=== PATIENT | female | born 1995 | race Caucasian/White ===

== ENCOUNTER 2017-09-30 10:04 | Emergency (ER) | payer BC ==
[2017-09-30] MEDS ORDERED: NS 0.9% 1000 ML* 2,000 ML IV ONE (10:32)
[2017-09-30 11:08] LABS: ABS Basophils 0 10^3/ul (0-0.2); ABS Eosinophils 0.1 10^3/ul (0-0.6); ABS Lymphocytes 1.5 10^3/ul (1.0-4.8); ABS Monocytes 0.4 10^3/ul (0-0.8); ABS Neutrophils 5.4 10^3/ul (1.5-7.7); ABS Nucleated RBC 0 10^3/ul; Eosinophil % 0.8 % (0-6); Hematocrit 40 % (35-47); Hemoglobin 13.5 g/dl (12.0-16.0); Lymphocyte % 20.4 % (25-47); Mean Corpuscular HGB Conc 34 g/dl (31-36); Mean Corpuscular Hemoglobin 29 pg (27-31); Mean Corpuscular Volume 86 fL (80-97); Nucleated Red Blood Cells % 0; Platelet Count 386 10^3/ul (150-450); Red Blood Count 4.68 10^6/ul (4.0-5.4); Red Cell Distribution Width 13 % (10.5-15); White Blood Count 7.4 10^3/ul (3.5-10.8)
[2017-09-30 12:01] LABS: EGFR Non-African American 88.9 (>60)
[2017-09-30 13:23] VITALS: BP 128/88
--- NOTE | 2017-09-30 13:34 | ED ---
Hector Bergeron Jennifer, scribed for Frantz Mariano on 09/30/17 at 1032 . Substance Abuse/Use - HPI Summary HPI Summary: The patient is a 21 year old female who presents with trouble speaking and diminished motor skills from prescription drug interaction yesterday morning. The patient reports that she had ACL reconstructive surgery 2 weeks ago and was prescribed Hydrocodone. She reports she is prescribed Adderall to help her concentrate. Yesterday, she took 5mg of Hydrocodone and 54mg of Adderall at the same time. Since 17:00 last night until now, she had difficulty move her hands while texting and had trouble speaking. She denies any pain. The patient additionally complains of not eating or drinking well and shortness of breath. - History Of Current Complaint Chief Complaint: EDGeneral Stated Complaint: PRESCRIPTION DRUG INTERACTION Time Seen by Provider: 09/30/17 10:20 Hx Obtained From: Patient Onset/Duration of Drug/ETOH Abuse: Days - one day Ingestion History: Type/Name Of Drug - Hydrocone and Adderall, Amount Ingested - 5mg [place] and 54 mg Adderall, Approximate Time Of Ingestion - 24 hours ago Overdose Characteristics: Oral Severity Initially: Mild Severity Currently: None Aggravating Factor(s): Nothing Alleviating Factor(s): Nothing Associated Signs And Symptoms: Other: - Difficulty speaking, diminished motor skills - Allergies/Home Medications Allergies/Adverse Reactions: Allergies Allergy/AdvReac Type Severity Reaction Status Date / Time amoxicillin Allergy Hives Verified 09/30/17 10:09 PMH/Surg Hx/FS Hx/Imm Hx Endocrine/Hematology History: Denies: Hx Diabetes Cardiovascular History: Denies: Hx Hypertension, Hx Pacemaker/ICD History: Denies: Hx Renal Disease Sensory History: Denies: Hx Hearing Aid Psychiatric History: Denies: Hx Anxiety, Hx Depression, Hx Panic Disorder - Surgical History Surgery Procedure, Year, and Place: DENIES Other Surgical History: ACL recon Infectious Disease History: No Infectious Disease History: Denies: Traveled Outside the [place] in Last 30 Days - Family History Known Family History: Negative: Hypertension, Diabetes - Social History Occupation: Student Alcohol Use: None Substance Use Type: Reports: Marijuana, Prescribed Hx Tobacco Use: No Smoking Status (MU): Never Smoked Tobacco Review of Systems Positive: Other - Not eating or drinking well Positive: Shortness Of Breath Neurological: Other - Diminished motor skills, difficulty speaking All Other Systems Reviewed And Are Negative: Yes Physical Exam - Summary Physical Exam Summary: Appearance: Well appearing, no pain distress Skin: warm, dry, reflects adequate perfusion Head/face: normal Eyes: EOMI, [place] ENT: normal Neck: supple, non-tender Respiratory: CTA, breath sounds present Cardiovascular: RRR, pulses symmetrical ~ Abdomen: non-tender, soft Bowel: present Musculoskeletal: normal, strength/ROM intact. Pt has left knee immobilizer. Neuro: normal, sensory motor intact, A&Ox3 Triage Information Reviewed: Yes Vital Signs On Initial Exam: Initial Vitals Temp Pulse Resp BP Pulse Ox 99.5 F 96 16 113/92 100 09/30/17 10:10 09/30/17 10:10 09/30/17 10:10 09/30/17 10:10 09/30/17 10:10 Vital Signs Reviewed: Yes Diagnostics - Vital Signs Vital Signs Temp Pulse Resp BP Pulse Ox 09/30/17 10:10 99.5 F 96 16 113/92 100 - Laboratory Lab Results: Lab Results 09/30/17 09/30/17 Range/Units 10:52 10:52 WBC 7.4 (3.5-10.8) 10^3/ul RBC 4.68 (4.0-5.4) 10^6/ul Hgb 13.5 (12.0-16.0) g/dl Hct 40 (35-47) % MCV 86 (80-97) fL MCH 29 (27-31) pg MCHC 34 (31-36) g/dl RDW 13 (10.5-15) % Plt Count 386 (150-450) 10^3/ul MPV 8.0 (7.4-10.4) um3 Neut % (Auto) 73.3 (38-83) % Lymph % (Auto) 20.4 L (25-47) % [place] % (Auto) 4.8 (0-7) % Eos % (Auto) 0.8 (0-6) % Baso % (Auto) 0.7 (0-2) % Absolute Neuts (auto) 5.4 (1.5-7.7) 10^3/ul Absolute Lymphs (auto) 1.5 (1.0-4.8) 10^3/ul Absolute Monos (auto) 0.4 (0-0.8) 10^3/ul Absolute Eos (auto) 0.1 (0-0.6) 10^3/ul Absolute Basos (auto) 0 (0-0.2) 10^3/ul Absolute Nucleated RBC 0 10^3/ul Nucleated RBC % 0 Sodium 138 L (139-145) mmol/L Potassium 3.6 (3.5-5.0) mmol/L Chloride 104 (101-111) mmol/L Carbon Dioxide 24 (22-32) mmol/L Anion Gap 10 (2-11) mmol/L BUN 10 (6-24) mg/dL Creatinine 0.82 (0.51-0.95) mg/dL Est GFR ( Amer) 114.3 (>60) Est GFR (Non-Af Amer) 88.9 (>60) BUN/Creatinine Ratio 12.2 (8-20) Glucose 123 H (70-100) mg/dL Calcium 10.3 (8.6-10.3) mg/dL Magnesium 1.9 (1.9-2.7) mg/dL Total Bilirubin 0.60 (0.2-1.0) mg/dL AST 18 (13-39) U/L ALT 14 (7-52) U/L Alkaline Phosphatase 48 (34-104) U/L Total Creatine Kinase 57 (10-223) U/L Troponin I 0.00 (<0.04) ng/mL Total Protein 8.0 (6.4-8.9) g/dL Albumin 4.7 (3.2-5.2) g/dL Globulin 3.3 (2-4) g/dL Albumin/Globulin Ratio 1.4 (1-3) TSH 3.68 (0.34-5.60) mcIU/mL Beta HCG, Quant < 0.60 mIU/mL Result Diagrams: 09/30/17 10:52 09/30/17 10:52 Lab Statement: Any lab studies that have been ordered have been reviewed, and results considered in the medical decision making process. - EKG 10:52 Cardiac Rate: NL EKG Rhythm: Sinus Rhythm - 82 BPM EKG Comparison: No Significant Change Course/Dx - Course Course Of Treatment: The patient is a 21 year old female who presents with trouble speaking and diminished motor skills from prescription drug interaction yesterday morning. She took Hydrocodone and Adderall simultaneously. Bloodwork was obtained. EKG was obtained. The patient is diagnosed with dizziness and drug interaction, and s/p left knee surgery. I removed the dressing and examined the left knee. The wound is healing, no infection, no swelling, no tenderness. I dressed it up again. Otherwise, patient is instructed to follow up with PCP in 3 days. - Diagnoses Differential Diagnosis/HQI/PQRI: Positive: Anxiety, Other - dizziness/drug reaction Provider Diagnoses: Drug interaction, Dizziness, S/P left knee surgery Discharge - Sign-Out/Discharge Documenting (check all that apply): Discharge - Discharge Plan Condition: Stable Disposition: HOME Patient Education Materials: Adverse Drug Reaction (ED), Dizziness (ED), Arthroscopic ACL Reconstruction (DC) Referrals: Hussein Montelongo MD [Primary Care Provider] - 3 Days Additional Instructions: Follow up with your primary care physician in three days. Return to the emergency department for any new or worsening symptoms. - Billing Disposition and Condition Condition: STABLE Disposition: HOME The documentation as recorded by the Hector ceja Jennifer accurately reflects the service I personally performed and the decisions made by , Frantz Mariano.
== END 2017-09-30 13:22 | disposition home or self-care (01) ==
LOC: ED 10:04
DX: T40.2X5A Adverse effect of other opioids, initial encounter (principal); T43.625A Adverse effect of amphetamines, initial encounter; R47.01 Aphasia; R42 Dizziness and giddiness; Y92.9 Unspecified place or not applicable; Z32.02 Encounter for pregnancy test, result negative; Z98.890 Other specified postprocedural states; Z88.0 Allergy status to penicillin
CPT/HCPCS: 36415; 80053; 82550; 83735; 84443; 84484; 84702; 85025; 93005; 96360; 99282